=== PATIENT | female | born 1960 | race Caucasian/White ===

== ENCOUNTER 2017-12-24 15:09 | Outpatient (CLI) | payer OTHER | END 2017-12-24 15:10 | disposition home or self-care (01) | LOC: BICULT 15:09 | DX: R35.0 Frequency of micturition (principal); E06.3 Autoimmune thyroiditis; R00.2 Palpitations; J32.9 Chronic sinusitis, unspecified; R19.8 Other specified symptoms and signs involving the digestive system and abdomen | CPT/HCPCS: 76856 ==

== ENCOUNTER 2019-04-04 13:03 | Outpatient (CLI) | payer OTHER ==
--- NOTE | 2019-04-04 13:45 | RAD ---
PA AND LATERAL VIEWS CHEST: HISTORY: Cough, shortness of breath. FINDINGS: The cardiomediastinum is normal. The lungs are expanded without focal areas of consolidation, pneumo thoraces, or pleural effusions. No acute osseous abnormalities are seen. IMPRESSION: No radiographic evidence of acute cardiopulmonary process. POS: [facility]
--- NOTE | 2019-04-04 14:27 | CT ---
CT coronary calcium scoring: DATE: 04/04/2019 HISTORY: 58-year-old female with hyperlipidemia and dyspnea presents for coronary screening exam. FINDINGS: There is a small pericardial effusion. There is a small focal airspace density located at the medial aspect of the right middle lobe, abutting the right anterior cardiac border. This is nonspecific, and could represent atelectasis, scar, or pneumonia. No evidence of pleural effusion. There is no cor onary artery atherosclerotic calcification. IMPRESSION: 1. Coronary calcium score is 0. Very low risk for cardiovascular event. 2. Small pericardial effusion. 3. Focal airspace density in the right middle lobe.
== END 2019-04-04 13:04 | disposition home or self-care (01) ==
LOC: BICCT 13:03
DX: R06.02 Shortness of breath (principal); E78.2 Mixed hyperlipidemia; I31.3 Pericardial effusion (noninflammatory); J98.4 Other disorders of lung
CPT/HCPCS: 71046; 75571

== ENCOUNTER 2019-04-04 13:31 | Outpatient (CLI) | payer OTHER ==
--- NOTE | 2019-04-04 14:48 | BD ---
BONE DENSITOMETRY USING DEXA: HISTORY: Postmenopausal screening for osteoporosis. FINDINGS: Lumbar Spine: BMD (g/cm2) L1 0.905 T-Score: -0.8 Z-Score: 0.3 L2 1.014 T-Score: -0.1 Z-Score: 1.1 L3 1.040 T-Score: -0.4 Z-Score: 0.9 L4 1.119 T-Score: -0.5 Z-Score: 1.9 L1-L4 1.025 T-Score: -0.2 Z-Score: 1.1 Femoral Neck: 0.761 T-Score: -0.8 Z-Score: 0.4 Total Femur: 0.888 T-Score: -0.4 Z-Score: 0.4 Impression: Normal bone mineral density. POS: [facility]
== END 2019-04-04 13:32 | disposition home or self-care (01) ==
LOC: BICMAMMO 13:31
PROVIDERS: ATTEND Family Medicine
DX: Z78.0 Asymptomatic menopausal state (principal); E78.2 Mixed hyperlipidemia; R06.02 Shortness of breath; E66.3 Overweight; E06.3 Autoimmune thyroiditis; Z79.890 Hormone replacement therapy
CPT/HCPCS: 77080

== ENCOUNTER 2022-07-16 08:53 | Outpatient (CLI) | payer OTHER | END 2022-07-16 08:54 | disposition home or self-care (01) | LOC: BICMAMMO 08:53 | PROVIDERS: ATTEND Family Medicine | DX: Z13.820 Encounter for screening for osteoporosis (principal); Z71.3 Dietary counseling and surveillance; M85.89 Other specified disorders of bone density and structure, multiple sites | CPT/HCPCS: 77080 ==